=== PATIENT | male | born 1955 | race Caucasian/White ===

== ENCOUNTER 2021-05-12 07:18 | Day surgery (SDC) | payer MEDICARE ==
[2021-05-12] MEDS ORDERED: Lactated Ringers 1,000 ML IV SCH ×2 (07:30→09:15)
[2021-05-12] MEDS ORDERED: fentaNYL 100 MCG/2 ML SDV ONE (08:13)
[2021-05-12] MEDS ORDERED: Propofol 200 MG/20 ML SDV ONE (08:13)
--- NOTE | 2021-05-12 08:26 | PCM.PREANE ---
Preanesthetic Assessment - Procedure Proposed Procedure: Colonoscopy - Anesthesia/Transfusion/Family Hx Anesthesia History: Prior Anesthesia Without Reaction Family History of Anesthesia Reaction: No Transfusion History: No Prior Transfusion(s) - Review of Systems General: No Symptoms Pulmonary: No Symptoms Cardiovascular: No Symptoms (HTN, HLD) Gastrointestinal: No Symptoms Neurological: No Symptoms Other: Reports: Diabetes (diet controlled) - Physical Assessment NPO Status Date: 05/11/21 NPO Status Time: 18:30 Height: 5 ft 7 in Weight: 99.79 kg ASA Class: 2 Mental Status: Alert & Oriented x3 Airway Class: Mallampati = 3 Dentition: Reports: Missing Tooth/Teeth Thyro-Mental Finger Breadths: 3 Mouth Opening Finger Breadths: 3 ROM/Head Extension: Full Lungs: Clear to Auscultation, Normal Respiratory Effort Cardiovascular: Regular Rate, Regular Rhythm - Lab Values: Laboratory Last Values SARS-CoV-2 RNA (JUAN CARLOS) NEGATIVE (NEGATIVE) 05/12/21 06:58 - Allergies Allergies/Adverse Reactions: Allergies Allergy/AdvReac Type Severity Reaction Status Date / Time No Known Allergies Allergy Verified 05/10/21 07:54 - Acknowledgements Anesthesia Type Planned: General Anesthesia Pt an Appropriate Candidate for the Planned Anesthesia: Yes Alternatives and Risks of Anesthesia Discussed w Pt/Guardian: Yes Pt/Guardian Understands and Agrees with Anesthesia Plan: Yes PreAnesthesia Questionnaire - Past Health History Medical/Surgical History: Denies Medical/Surgical History HEENT History: Reports: Other (See Below) Other HEENT History: readers, hx fx nose Cardiovascular History: Reports: High Cholesterol, Hypertension Respiratory History: Reports: None Gastrointestinal History: Reports: Colon Polyp Genitourinary History: Reports: None Musculoskeletal History: Reports: Fracture Other Musculoskeletal History: hx fx nose Neurological History: Reports: None Psychiatric History: Reports: None Endocrine/Metabolic History: Reports: Diabetes, Type II, Obesity/BMI 30+ Other Endocrine/Metabolic History: diet controlled Hematologic History: Reports: None Immunologic History: Reports: None Oncologic (Cancer) History: Reports: None Dermatologic History: Reports: None - Past Surgical History Head Surgeries/Procedures: Reports: None HEENT Surgical History: Reports: None Cardiovascular Surgical History: Reports: None Respiratory Surgical History: Reports: None GI Surgical History: Reports: Colonoscopy Male Surgical History: Reports: None Endocrine Surgical History: Reports: None Neurological Surgical History: Reports: None Musculoskeletal Surgical History: Reports: None Oncologic Surgical History: Reports: None Dermatological Surgical History: Reports: None - SUBSTANCE USE Tobacco Use Status *Q: Never Tobacco User Recreational Drug Use History: No - HOME MEDS Home Medications: Home Meds Chlorthalidone 25 mg PO DAILY 05/10/21 [History] Losartan Potassium 100 mg PO DAILY 05/10/21 [History] Spironolactone [Aldactone] 25 mg PO DAILY 05/10/21 [History] amLODIPine Besylate [Amlodipine Besylate] 5 mg PO BEDTIME 05/10/21 [History] atorvaSTATin [Lipitor] 40 mg PO DAILY 05/10/21 [History] - CURRENT (IN HOUSE) MEDS Current Meds: Current Medications Lactated Ringer's (Ringers, Lactated) 1,000 mls @ 125 mls/hr IV ASDIRECTED TRICIA Discontinued Medications Fentanyl (Fentanyl 100 Mcg/2 Ml Sdv) Confirm Administered Dose 100 mcg .ROUTE .STK-MED ONE Stop: 05/12/21 08:14 Lidocaine HCl (Lidocaine 1% 5 Ml Sdv) Confirm Administered Dose 5 ml .ROUTE .STK-MED ONE Stop: 05/12/21 08:14 Propofol (Propofol 200 Mg/20 Ml Sdv) Confirm Administered Dose 400 mg .ROUTE .STK-MED ONE Stop: 05/12/21 08:14
--- NOTE | 2021-05-12 09:16 | PCM.OPNOTE ---
- General Post-Op/Procedure Note Date of Surgery/Procedure: 05/12/21 Operative Procedure(s): Colonoscopy w/ cold sigmoid polypectomy Pre Op Diagnosis: Hx of colon polyps Anesthesia Technique: MAC (ASA II) Primary Surgeon: Margarito Yi Condition: Good Free Text/Narrative:: DICTATION [id number] CPT CODE [id number]
--- NOTE | 2021-05-12 09:18 | PCM.POSTAN ---
POST ANESTHESIA ASSESSMENT - MENTAL STATUS Mental Status: Alert, Oriented - VITAL SIGNS Vital Signs: Last Vital Signs Temp 97.3 F 05/12/21 08:00 Pulse 87 05/12/21 08:00 Resp 15 05/12/21 08:00 BP 170/100 H 05/12/21 08:00 Pulse Ox 95 05/12/21 08:00 - RESPIRATORY Respiratory Status: Respiratory Rate WNL, Airway Patent, O2 Saturation Stable - CARDIOVASCULAR CV Status: Pulse Rate WNL, Blood Pressure Stable - GASTROINTESTINAL GI Status: No Symptoms - PAIN Pain Score: 0 - POST OP HYDRATION Hydration Status: Adequate & Stable
--- NOTE | 2021-05-12 09:32 | PCM48HPAN ---
Post Anesthesia Note - EVALUATION WITHIN 48HRS OF ANESTHETIC Vital Signs in Normal Range: Yes Patient Participated in Evaluation: Yes Respiratory Function Stable: Yes Airway Patent: Yes Cardiovascular Function Stable: Yes Hydration Status Stable: Yes Pain Control Satisfactory: Yes Nausea and Vomiting Control Satisfactory: Yes Mental Status Recovered: Yes Vital Signs: Last Vital Signs Temp 97.9 F 05/12/21 09:12 Pulse 68 05/12/21 09:27 Resp 18 05/12/21 09:27 BP 103/73 05/12/21 09:27 Pulse Ox 91 L 05/12/21 09:27 - COMMENTS/OBSERVATIONS Free Text/Narrative:: Pt doing well post-op. VSS. No apparent anesthetic complications. Dr. Vahid Patterson
--- NOTE | 2021-05-12 15:17 | OR ---
SURGEON: Margarito Yi M.D. DATE OF PROCEDURE: 05/12/2021 OPERATION PERFORMED: Colonoscopy with cold transverse colon polypectomy. PRIMARY SURGEON: Margarito Yi M.D. ANESTHESIA: MAC. ASA CLASSIFICATION: II. PREOPERATIVE DIAGNOSIS: Personal history of colon polyps. POSTOPERATIVE DIAGNOSIS: Distal sigmoid colon polyp. DESCRIPTION OF PROCEDURE: The patient was taken to the endoscopy room and positioned on the endoscopy table in the left lateral decubitus position. Time-out was called for appropriate identification of patient and procedure. Monitored anesthesia care was provided. The colonoscope was inserted into the rectum and advanced with minimal difficulty to the cecum. The cecum was identified by internal landmarks and external pressure. The colonoscope was retroflexed to visualize the ascending colon from below and then straightened and slowly withdrawn. The cecum, ascending colon, hepatic flexure, transverse colon, splenic flexure, and descending colon showed no tumors, polyps, diverticula, or angiodysplastic changes. One small polyp was encountered in the distal sigmoid colon and removed with cold biopsy forceps. No significant bleeding was noted. The colonoscope was then withdrawn to the rectum and retroflexed to visualize the anal orifice from above. No tumors, polyps, or acute hemorrhoidal changes were noted. The colonoscope was then straightened, the rectum aspirated, and the colonoscope removed. Patient tolerated the procedure well and was taken to recovery room in satisfactory condition. MAKAYLA / ANDRES /[id number]
== END 2021-05-12 10:00 | disposition home or self-care (01) ==
LOC: MW.SDS 07:18
PROVIDERS: ATTEND Surgery
DX: Z12.11 Encounter for screening for malignant neoplasm of colon (principal); D12.5 Benign neoplasm of sigmoid colon; E11.9 Type 2 diabetes mellitus without complications; I10 Essential (primary) hypertension; K40.90 Unilateral inguinal hernia, without obstruction or gangrene, not specified as recurrent; E66.9 Obesity, unspecified; Z01.812 Encounter for preprocedural laboratory examination; Z20.822 Contact with and (suspected) exposure to COVID-19; Z79.899 Other long term (current) drug therapy; Z98.890 Other specified postprocedural states; Z68.34 Body mass index [BMI] 34.0-34.9, adult
CPT/HCPCS: 45380; J2704; J3010; J7120; U0002; 00811

== ENCOUNTER 2021-05-15 08:50 | Day surgery (SDC) | payer MEDICARE ==
[~2021-05-15 08:50] MED LIST: Lactated Ringers 1,000 ML IV SCH; ceFAZolin 2 GM in Premix Bag 1 BAG IV SCH
--- NOTE | 2021-05-15 09:45 | PCM.PREANE ---
Preanesthetic Assessment - Procedure Proposed Procedure: Left IHR with mesh - Anesthesia/Transfusion/Family Hx Anesthesia History: Prior Anesthesia Without Reaction Family History of Anesthesia Reaction: No Transfusion History: No Prior Transfusion(s) - Review of Systems General: No Symptoms Pulmonary: No Symptoms Cardiovascular: No Symptoms (HTN, HLD) Gastrointestinal: No Symptoms Neurological: No Symptoms Other: Reports: Diabetes (diet controlled) - Physical Assessment NPO Status Date: 05/15/21 NPO Status Time: 00:01 Vital Signs: Last Vital Signs Temp 97.2 F 05/15/21 09:15 Pulse 74 05/15/21 09:15 Resp 16 05/15/21 09:15 BP 162/98 H 05/15/21 09:15 Pulse Ox 94 L 05/15/21 09:15 Height: 5 ft 7 in Weight: 99.79 kg ASA Class: 2 Mental Status: Alert & Oriented x3 Airway Class: Mallampati = 2 Dentition: Reports: Missing Tooth/Teeth Thyro-Mental Finger Breadths: 3 Mouth Opening Finger Breadths: 3 ROM/Head Extension: Full Lungs: Clear to Auscultation, Normal Respiratory Effort - Allergies Allergies/Adverse Reactions: Allergies Allergy/AdvReac Type Severity Reaction Status Date / Time No Known Allergies Allergy Verified 05/15/21 09:17 - Acknowledgements Anesthesia Type Planned: General Anesthesia Pt an Appropriate Candidate for the Planned Anesthesia: Yes Alternatives and Risks of Anesthesia Discussed w Pt/Guardian: Yes Pt/Guardian Understands and Agrees with Anesthesia Plan: Yes PreAnesthesia Questionnaire - Past Health History Medical/Surgical History: Denies Medical/Surgical History HEENT History: Reports: Other (See Below) Other HEENT History: readers, hx fx nose Cardiovascular History: Reports: High Cholesterol, Hypertension Respiratory History: Reports: None Gastrointestinal History: Reports: Colon Polyp Genitourinary History: Reports: None Musculoskeletal History: Reports: Fracture Other Musculoskeletal History: hx fx nose Neurological History: Reports: None Psychiatric History: Reports: None Endocrine/Metabolic History: Reports: Diabetes, Type II, Obesity/BMI 30+ Other Endocrine/Metabolic History: diet controlled Hematologic History: Reports: None Immunologic History: Reports: None Oncologic (Cancer) History: Reports: None Dermatologic History: Reports: None - Past Surgical History Head Surgeries/Procedures: Reports: None HEENT Surgical History: Reports: None Cardiovascular Surgical History: Reports: None Respiratory Surgical History: Reports: None GI Surgical History: Reports: Colonoscopy Male Surgical History: Reports: None Endocrine Surgical History: Reports: None Neurological Surgical History: Reports: None Musculoskeletal Surgical History: Reports: None Oncologic Surgical History: Reports: None Dermatological Surgical History: Reports: None - SUBSTANCE USE Tobacco Use Status *Q: Never Tobacco User Recreational Drug Use History: No - HOME MEDS Home Medications: Home Meds Chlorthalidone 25 mg PO DAILY 05/10/21 [History] Losartan Potassium 100 mg PO DAILY 05/10/21 [History] Spironolactone [Aldactone] 25 mg PO DAILY 05/10/21 [History] amLODIPine Besylate [Amlodipine Besylate] 5 mg PO BEDTIME 05/10/21 [History] atorvaSTATin [Lipitor] 40 mg PO DAILY 05/10/21 [History] - CURRENT (IN HOUSE) MEDS Current Meds: Current Medications Cefazolin Sodium/Dextrose 2 gm (/ Premix) 50 mls @ 100 mls/hr IV ONETIME TRICIA Lactated Ringer's (Ringers, Lactated) 1,000 mls @ 125 mls/hr IV ASDIRECTED TRICIA
[2021-05-15] MEDS ORDERED: fentaNYL 100 MCG/2 ML SDV IVPUSH PRN (10:28)
[2021-05-15] MEDS ORDERED: Metoclopramide 10 MG/2 ML SDV IVPUSH PRN (10:28)
[2021-05-15] MEDS ORDERED: Naloxone 0.4 MG/ML SDV IVPUSH PRN (10:28)
[2021-05-15] MEDS ORDERED: Ondansetron 4 MG/2 ML SDV IVPUSH PRN ×2 (10:28→13:50)
[2021-05-15] MEDS ORDERED: HYDROmorphone 1 MG/ML Syringe IVPUSH PRN (10:28)
[2021-05-15] MEDS ORDERED: Albuterol 0.083% 2.5 MG/3 ML Neb Soln NEB PRN (10:28)
[2021-05-15] MEDS ORDERED: Ondansetron 4 MG/2 ML SDV ONE (11:22)
[2021-05-15] MEDS ORDERED: Propofol 200 MG/20 ML SDV ONE (11:22)
[2021-05-15] MEDS ORDERED: fentaNYL 100 MCG/2 ML SDV ONE (11:22)
[2021-05-15] MEDS ORDERED: Lidocaine 2% 5 ML SDV ONE (11:22)
[2021-05-15] MEDS ORDERED: Midazolam 1 MG/ML 2 ML SDV ONE (11:22)
[2021-05-15] MEDS ORDERED: Dexamethasone 4 MG/ML 5 ML MDV ONE (11:22)
[2021-05-15] MEDS ORDERED: Bupivacaine 0.5% 30 ML SDV ONE (11:31)
[2021-05-15] MEDS ORDERED: ePHEDrine 50 MG/ML SDV ONE (11:49)
[2021-05-15] MEDS ORDERED: ceFAZolin 1 GM Vial ONE (11:50)
[2021-05-15] MEDS ORDERED: Ketorolac 30 MG/ML SDV ONE (12:17)
[2021-05-15] MEDS ORDERED: HYDROmorphone 2 MG/ML Syringe ONE (13:23)
[2021-05-15] MEDS ORDERED: Acetaminophen/HYDROcodone 325-5 MG Tab PO PRN (13:50)
[2021-05-15] MEDS ORDERED: Morphine 4 MG/ML VIAL IVPUSH PRN (13:50)
--- NOTE | 2021-05-15 13:58 | PCM.OPNOTE ---
- General Post-Op/Procedure Note Operative Procedure(s): Repair incarcerated left inguinal hernia with extra large Bard PerFix plug and patch Pre Op Diagnosis: Incarcerated left inguinal hernia Post-Op Diagnosis: Same Anesthesia Technique: General LMA (ASA II) Primary Surgeon: Margarito Yi Hadoop Analyst: Dionne Atkins Role of Hadoop Analyst: Retraction, exposure, closure Fluid Replacement, Intraop: 1,200 EBL in mLs: 20 Condition: Good Free Text/Narrative:: DICTATION [id number] CPT CODE [id number]
[2021-05-15] MEDS ORDERED: Lactated Ringers 1,000 ML IV SCH (14:00)
--- NOTE | 2021-05-15 14:11 | PCM.POSTAN ---
POST ANESTHESIA ASSESSMENT - MENTAL STATUS Mental Status: Somnolent - VITAL SIGNS Vital Signs: Last Vital Signs Temp 97.2 F 05/15/21 09:15 Pulse 74 05/15/21 09:15 Resp 16 05/15/21 09:15 BP 162/98 H 05/15/21 09:15 Pulse Ox 94 L 05/15/21 09:15 - RESPIRATORY Respiratory Status: Respiratory Rate WNL, Airway Patent, O2 Saturation Stable - CARDIOVASCULAR CV Status: Pulse Rate WNL, Blood Pressure Stable - GASTROINTESTINAL GI Status: No Symptoms - PAIN Free Text/Narrative:: Resting comfortably - POST OP HYDRATION Hydration Status: Adequate & Stable
--- NOTE | 2021-05-15 14:38 | PCM48HPAN ---
Post Anesthesia Note - EVALUATION WITHIN 48HRS OF ANESTHETIC Vital Signs in Normal Range: Yes Patient Participated in Evaluation: Yes Respiratory Function Stable: Yes Airway Patent: Yes Cardiovascular Function Stable: Yes Hydration Status Stable: Yes Pain Control Satisfactory: Yes Nausea and Vomiting Control Satisfactory: Yes Mental Status Recovered: Yes Vital Signs: Last Vital Signs Temp 98.8 F 05/15/21 14:05 Pulse 109 H 05/15/21 14:35 Resp 8 L 05/15/21 14:35 BP 121/98 H 05/15/21 14:35 Pulse Ox 93 L 05/15/21 14:35 - COMMENTS/OBSERVATIONS Free Text/Narrative:: Pt doing well post-op. VSS. No apparent anesthetic complications. Dr. Vahid Patterson
--- NOTE | 2021-05-16 09:13 | OR ---
SURGEON: Margarito Yi M.D. DATE OF PROCEDURE: 05/15/2021 OPERATION PERFORMED: Repair, incarcerated left inguinal hernia with extra-large Bard PerFix plug and patch. PRIMARY SURGEON: Margarito Yi M.D. TECHNICAL COMMUNICATOR: Corn Cooker: Eli Atkins, mackenzie OR claire, property management assistant. ANESTHESIA: General LMA. ASA CLASSIFICATION: II. PREOPERATIVE DIAGNOSIS: Incarcerated left inguinal hernia. POSTOPERATIVE DIAGNOSIS: Incarcerated left inguinal hernia. ESTIMATED BLOOD LOSS: 20 mL. INTRAOPERATIVE FLUID REPLACEMENT: 1200 mL of crystalloid. DESCRIPTION OF PROCEDURE: The patient was taken to the operating room and placed on the operating table in the supine position. The surgical site had been marked prior to the patient entering the operating room. Thigh-high TEDs and sequential compression boots were placed. Following satisfactory attainment of general anesthesia with placement of an LMA, the abdomen was prepped with DuraPrep solution, and sterile drapes were applied. Skin incision was marked out on the left inguinal crease. The skin was then infiltrated with 10 mL of 0.5% Marcaine solution. Skin incision was made and deepened through the subcutaneous tissue obtaining hemostasis with the use of electrocautery. Dissection was carried down to the external oblique fascia which was opened in the direction of its fibers. The patient had a very large hernia sac. In the course of the dissection, the testicle was pulled up into the inguinal canal to further dissect away the hernia sac. Eventually with great difficulty, I was able to reduce the hernia sac. An extra-large Bard PerFix plug and patch was brought to the operating table. This was soaked in 1% Ancef solution. The plug was placed into the internal defect and secured with a 0 Ethibond suture. The patch was placed over this and serially sutured in place using multiple interrupted 0 Ethibond beginning medially and inferiorly to Arun ligament, transitioning to the inguinal ligament, and superiorly to the transversalis fascia. The wings of the patch were brought around the cord and secured laterally. All sutures were tied. The patient was given a Valsalva maneuver to approximately 30 cm of water and the repair was noted to be solid. The wound was then irrigated with 1% Ancef solution and all fluid was aspirated. The cord was returned to its anatomic location and the wound inspected for hemostasis. No significant bleeding was noted. The external oblique fascia was closed with running 3-0 Vicryl. Ivette fascia was closed with 3-0 Vicryl, and the skin edges were reapproximated with subcuticular 4-0 Monocryl reinforced with Steri-Strips. Sterile Tegaderm pad was placed as a dressing. Sponge, needle, and instrument counts were all correct. Patient tolerated the procedure well. Following emergence from anesthesia and extubation, the patient was taken to recovery room in stable condition. MAKAYLA / ANDRES /[id number] MTDD
== END 2021-05-15 17:30 | disposition home or self-care (01) ==
LOC: MW.SDS 08:50
PROVIDERS: ATTEND Surgery
DX: K40.30 Unilateral inguinal hernia, with obstruction, without gangrene, not specified as recurrent (principal); I10 Essential (primary) hypertension; E11.9 Type 2 diabetes mellitus without complications; E66.9 Obesity, unspecified; E78.00 Pure hypercholesterolemia, unspecified; Z68.34 Body mass index [BMI] 34.0-34.9, adult; Z98.890 Other specified postprocedural states; Z79.899 Other long term (current) drug therapy; Z86.010 Personal history of colon polyps
CPT/HCPCS: 49507; 82947; C1781; J0131; J0690; J1100; J1170; J1885; J2250; J2704; J3010; J3490; J7120; 00750; J2405